=== PATIENT | female | born 1980 | race Two or more races ===

== ENCOUNTER 2016-09-02 16:11 | Emergency (ER) | payer MEDICAID ==
[~2016-09-02] VITALS: Ht 162.6 cm; Wt 86.2 kg
[2016-09-02 16:29] VITALS: BP 139/92
[2016-09-02] MEDS ORDERED: HYDROcodone-ACET 5/325MG TAB PO ONE (19:00)
== END 2016-09-02 19:08 | disposition home or self-care (01) ==
LOC: ER 16:17
DX: N63 Unspecified lump in breast (principal); N61.0 Mastitis without abscess
CPT/HCPCS: 76642